=== PATIENT | female | born 1970 | race Caucasian/White ===

== ENCOUNTER 2022-11-19 11:36 | Observation (INO) ==
[2022-11-19 11:56] VITALS: BMI 24.9
--- NOTE | 2022-11-19 12:03 | DR.GENAD ---
HPI Time Seen Time Seen by Provider: 11/19/22 12:02 PCP Primary Care Physician: Elina Dye/Thomas Complaint/Symptoms Chief Complaint Doctors Comments: 52 y/o female presents with worsening infection of her left foot. Put on her 's shoes, they were outside, felt discomfort of her R 4th toe. Started as a small red bump, was a bit itchy. Festered up the next day, has steadily worsened. Saw medical provider yesterday, placed on sulfa antibiotic, norco. Too nauseous to take the medicine. + pain of the left 4th toe, radiates to the left foot. + worse with palpation, movement. Nothing makes it better. Denies fever, chills. Has been having nausea. No vomiting or diarrhea. No prior h/o abscesses. Chief Complaint:: Patient states she possibly has spider bite left 4th toe from and progressivly got worse Thu & Thursday. Saw [employer] yesterday and started on Bactrim DS but causes N&V and cant keep it down COVID-19 Coronavirus risk:travel/contact w/high risk person: No Has patient experienced Coronavirus symptoms: No Nurses notes reviewed Nurses Notes Review: Yes Source History Provided: Patient Mode of Arrival Mode of Arrival: Ambulatory Timing Onset of Chief Complaint: 11/13/22 PMH PMH Past Medical History: No Past Surgical History: No Family History History of Family Medical Conditions: Yes Family Medical History: Diabetes Mellitus, Cancer, Coronary Artery Disease, Heart Failure and Hypertension Social History Does patient currently use any type of tobacco product: No Have you used tobacco products in the last 12 months: No Type of Tobacco Use: None Does any household member use tobacco: No Alcohol Use: None Do you use any recreational Drugs:: No Lives With: Spouse Lives Where: Home Travel Risk Coronavirus risk:travel/contact w/high risk person: No Has patient experienced Coronavirus symptoms: No Infectious screening In the last 2 months have you had wt loss of >10#?: NO Have you had fever, night sweats or hemotysis?: No Have you traveled outside the country in the last 6 months?: No Isolation: Standard ROS Review of Systems Constitutional: No Symptoms Reported Eyes: No Symptoms Reported ENTM: No Symptoms Reported Respiratoy: No Symptoms Reported Cardiovascular: No Symptoms Reported Gastrointestinal/Abdominal: Nausea Genitourinary: No Symptoms Reported Neurological: No Symptoms Reported Musculoskeletal: See HPI Integumentary: See HPI All Other Systems: Reviewed and Negative PE Vital Signs Vitals: Temperature 97.5 F Pulse Rate 76 Respiratory Rate 20 Blood Pressure 134/57 O2 Sat by Pulse Oximetry 98 General General Appearance: Alert and In No Apparent Distress Eyes Eye exam: PERRL and EOMI ENT ENT Exam: Mucous Membranes Moist Neck Neck Exam: Normal Inspection Respiratory Respiratory Exam: Normal Lung Sounds Bilat; negative Accessory Muscle Use or Respiratory Distress Cardiovascular Cardiovascular Exam: Regular Rate, Normal Rhythm and Normal Heart Sounds Neurologic Neurological Exam: Alert, Oriented X3 and CN II-XII Intact; negative Motor Sensory Deficit Skin Skin Exam: Warm and Dry Other Exam Other Exam: L foot - + 4th toe with swelling, erythema, purulent material under skin. + surrounding erythema with tenderness. COURSE Treatment Treatment: 52 y/o female with worsening infection of her L 4th toe/foot over the past few days. Unable to take the sulfa antibiotic prescribed yesterday due to nausea. W/u initiated. 1340 - WBC slightly elevated , 12.8, 84% PMNs. Discussed with Dr Guzman, will admit, put on IV Zosyn/Vancomycin, and consult with Dr Denton, as toe may need drainage. ROR Labs Reviewed Laboratory Results Reviewed?: Yes Result Diagrams: 11/19/22 12:22 11/19/22 12:22 Laboratory: WBC 12.8 X10^3/uL (3.6-10.0) H 11/19/22 12:22 RBC 4.79 X10^6/uL (3.5-5.4) 11/19/22 12:22 Hgb 14.4 g/dL (12.0-16.0) 11/19/22 12:22 Hct 42.1 % (36.0-47.0) 11/19/22 12:22 MCV 87.8 fL (80.0-100.0) 11/19/22 12:22 MCH 30.0 pg (27.0-34.0) 11/19/22 12:22 MCHC 34.2 g/dL (33.0-35.0) 11/19/22 12:22 RDW 13.7 % (11.6-16.5) 11/19/22 12:22 Plt Count 225 X10^3/uL (150.0-450.0) 11/19/22 12:22 MPV 8.1 fL (7.4-11.0) 11/19/22 12:22 Neut % (Auto) 83.8 % (42.0-75.0) H 11/19/22 12:22 Lymph % (Auto) 8.9 % (21.0-51.0) L 11/19/22 12:22 [place] % (Auto) 6.7 % (0.0-13.0) 11/19/22 12:22 Eos % (Auto) 0.2 % (0.9-2.9) L 11/19/22 12:22 Baso % (Auto) 0.4 % (0.2-1.0) 11/19/22 12:22 Neut # (Auto) 10.8 x10^3/uL (2.2-4.8) H 11/19/22 12:22 Lymph # (Auto) 1.1 X10^3/uL (1.3-2.9) L 11/19/22 12:22 [place] # (Auto) 0.9 x10^3/uL (0.3-0.8) H 11/19/22 12:22 Eos # (Auto) 0.0 x10^3/uL (0.0-0.2) 11/19/22 12:22 Baso # (Auto) 0.0 X10^3/uL (0.0-0.1) 11/19/22 12:22 Absolute Nucleated RBC 0.0 /100WBC 11/19/22 12:22 Sodium 135 mmol/L (136-145) L 11/19/22 12:22 Corrected Sodium TNP 11/19/22 12:22 Potassium 4.5 mmol/L (3.5-5.1) 11/19/22 12:22 Chloride 99 mmol/L (98-107) 11/19/22 12:22 Carbon Dioxide 26.5 mmol/L (21-32) 11/19/22 12:22 BUN 14 mg/dL (7-18) 11/19/22 12:22 Creatinine 0.93 mg/dL (0.55-1.02) 11/19/22 12:22 Est GFR (MDRD) Af Amer > 60 (>60) 11/19/22 12:22 Est GFR (MDRD) Non-Af > 60 (>60) 11/19/22 12:22 Glucose 89 mg/dL (65-99) 11/19/22 12:22 Lactic Acid 0.7 mmol/L (0.4-2.0) 11/19/22 12:22 Calcium 8.7 mg/dL (8.5-10.1) 11/19/22 12:22 Corrected Calcium TNP 11/19/22 12:22 Total Bilirubin 0.90 mg/dL (0.2-1.0) 11/19/22 12:22 AST 75 Units/L (15-37) H 11/19/22 12:22 ALT 111 Units/L (12-78) H 11/19/22 12:22 Alkaline Phosphatase 176 Units/L (46-116) H 11/19/22 12:22 Total Protein 7.5 g/dL (6.4-8.2) 11/19/22 12:22 Albumin 3.7 g/dL (3.4-5.0) 11/19/22 12:22 Globulin 3.8 g/dL (2.5-4.5) 11/19/22 12:22 Albumin/Globulin Ratio 1.0 Ratio (1.1-2.1) L 11/19/22 12:22 Opioid Opioid Risk Tool Age (José Miguel box if 16-45): No History of Preadolescent Sexual Abuse: No Total: 0 Total Score Risk Category: Low Risk Copyright: Cesar PATTERSON predicting aberrant behaviors Discharge Plan Diagnosis Discharge Problem: Cellulitis of foot, left Discharge Plan Patient Disposition: 09 ADMITTED INPATIENT Condition: Stable
[2022-11-19] MEDS ORDERED: NS 1,000 ML IV 1,000 ML IV ONE (12:07)
[2022-11-19] MEDS ORDERED: NS 1,000 ML IV 1,000 ML ONE (12:10)
[2022-11-19] MEDS ORDERED: ZOFRAN INJ 4 MG VIAL ONE (12:35)
[2022-11-19] MEDS ORDERED: ZOFRAN INJ 4 MG VIAL IVP ONE (12:39)
[2022-11-19 12:40] LABS: BASOPHILS % (AUTO) 0.4 % (0.2-1.0); EOSINOPHILS % (AUTO) 0.2 % (0.9-2.9); HEMATOCRIT 42.1 % (36.0-47.0); HEMOGLOBIN 14.4 g/dL (12.0-16.0); LYMPHOCYTES # (AUTO) 1.1 X10^3/uL (1.3-2.9); LYMPHOCYTES % (AUTO) 8.9 % (21.0-51.0); MEAN CORPUSCULAR HGB CONC 34.2 g/dL (33.0-35.0); MEAN CORPUSCULAR VOLUME 87.8 fL (80.0-100.0); MEAN PLATELET VOLUME 8.1 fL (7.4-11.0); MONOCYTES # (AUTO) 0.9 x10^3/uL (0.3-0.8); MONOCYTES % (AUTO) 6.7 % (0.0-13.0); NEUTROPHILS # (AUTO) 10.8 x10^3/uL (2.2-4.8); NEUTROPHILS % (AUTO) 83.8 % (42.0-75.0); PLATELET COUNT 225 X10^3/uL (150.0-450.0); RED BLOOD COUNT 4.79 X10^6/uL (3.5-5.4); RED CELL DISTRIBUTION WIDTH 13.7 % (11.6-16.5); WHITE BLOOD COUNT 12.8 X10^3/uL (3.6-10.0)
[2022-11-19 12:58] LABS: ALANINE AMINOTRANSFERASE 111 Units/L (12-78); ALBUMIN 3.7 g/dL (3.4-5.0); ALKALINE PHOSPHATASE 176 Units/L (46-116); ASPARTATE AMINO TRANSFERASE 75 Units/L (15-37); BLOOD UREA NITROGEN 14 mg/dL (7-18); CALCIUM 8.7 mg/dL (8.5-10.1); CARBON DIOXIDE 26.5 mmol/L (21-32); CHLORIDE 99 mmol/L (98-107); CREATININE 0.93 mg/dL (0.55-1.02); GLUCOSE 89 mg/dL (65-99); POTASSIUM 4.5 mmol/L (3.5-5.1); SODIUM 135 mmol/L (136-145); TOTAL PROTEIN 7.5 g/dL (6.4-8.2); eGFR NON BLACK RACES > 60 (>60)
[2022-11-19 13:02] LABS: LACTIC ACID 0.7 mmol/L (0.4-2.0)
[2022-11-19] MEDS ORDERED: ZOSYN VIAL 3.375 GRAMS 3.375 G in NS 100 ML IV 100 ML IV ONE (13:23)
[2022-11-19] MEDS ORDERED: VANCOMYCIN IV *PREMIX 1 G/200 ML BAG 1 G/200 ML PIGGYBACK IV ONE ×2 (13:24→14:12)
[2022-11-19] MEDS ORDERED: ZOSYN VIAL 3.375 GRAMS IV ONE (13:31)
[2022-11-19] MEDS ORDERED: NS 100 ML IV 100 ML ONE (13:32)
[2022-11-19] MEDS ORDERED: VANCOMYCIN IV *PREMIX 1 G/200 ML BAG 1 G/200 ML PIGGYBACK IV SCH (14:58)
[2022-11-19] MEDS ORDERED: PHARMACY CONSULT - VANCOMYCIN XX SCH (15:00)
[2022-11-19] MEDS: ZOSYN VIAL 3.375 GRAMS 3.375 G in NS 100 ML IV 100 ML IV SCH ×2 (15:26→21:11)
[2022-11-19] MEDS ORDERED: TYLENOL 325 MG TAB PO PRN (15:50)
[2022-11-19] MEDS: ZOFRAN INJ 4 MG VIAL IVP PRN ×2 (16:02→22:47)
[2022-11-19] MEDS: VANCOMYCIN IV *PREMIX 1 G/200 ML BAG 1 G/200 ML PIGGYBACK IV SCH (21:11)
[2022-11-19] MEDS: MORPHINE SULFATE INJ 4 MG IVP PRN (22:47)
[2022-11-20] MEDS: VANCOMYCIN IV *PREMIX 1 G/200 ML BAG 1 G/200 ML PIGGYBACK IV SCH ×3 (05:00→21:00)
[2022-11-20] MEDS: ZOSYN VIAL 3.375 GRAMS 3.375 G in NS 100 ML IV 100 ML IV SCH ×3 (05:05→22:00)
[2022-11-20 06:06] LABS: ALANINE AMINOTRANSFERASE 141 Units/L (12-78); ALBUMIN 3.3 g/dL (3.4-5.0); ALKALINE PHOSPHATASE 179 Units/L (46-116); ASPARTATE AMINO TRANSFERASE 101 Units/L (15-37); BLOOD UREA NITROGEN 13 mg/dL (7-18); CARBON DIOXIDE 25.8 mmol/L (21-32); CHLORIDE 104 mmol/L (98-107); COR CA(FOR HYPOALB) 8.6 mg/dL (8.5-10.1); CREATININE 0.89 mg/dL (0.55-1.02); GLUCOSE 90 mg/dL (65-99); POTASSIUM 4.1 mmol/L (3.5-5.1); SODIUM 139 mmol/L (136-145); TOTAL PROTEIN 7.2 g/dL (6.4-8.2); eGFR NON BLACK RACES > 60 (>60)
[2022-11-20 06:35] LABS: BASOPHILS # (AUTO) 0.1 X10^3/uL (0.0-0.1); BASOPHILS % (AUTO) 0.6 % (0.2-1.0); EOSINOPHILS # (AUTO) 0.1 x10^3/uL (0.0-0.2); EOSINOPHILS % (AUTO) 1.3 % (0.9-2.9); HEMATOCRIT 39.4 % (36.0-47.0); HEMOGLOBIN 13.4 g/dL (12.0-16.0); LYMPHOCYTES # (AUTO) 1.3 X10^3/uL (1.3-2.9); LYMPHOCYTES % (AUTO) 12.5 % (21.0-51.0); MEAN CORPUSCULAR HGB CONC 33.9 g/dL (33.0-35.0); MEAN CORPUSCULAR VOLUME 88.5 fL (80.0-100.0); MEAN PLATELET VOLUME 8.6 fL (7.4-11.0); MONOCYTES % (AUTO) 9.9 % (0.0-13.0); NEUTROPHILS % (AUTO) 75.7 % (42.0-75.0); PLATELET COUNT 139 X10^3/uL (150.0-450.0); RED BLOOD COUNT 4.45 X10^6/uL (3.5-5.4); RED CELL DISTRIBUTION WIDTH 13.8 % (11.6-16.5); WHITE BLOOD COUNT 10.5 X10^3/uL (3.6-10.0)
[2022-11-20] MEDS: MORPHINE SULFATE INJ 4 MG IVP PRN (09:00)
[2022-11-20] MEDS: ZOFRAN INJ 4 MG VIAL IVP PRN (09:08)
[2022-11-20] MEDS ORDERED: NORCO 10/325 TAB PO PRN (10:30)
[2022-11-20] MEDS ORDERED: LR 1,000 ML IV 1,000 ML IV ONE (13:03)
[2022-11-20] MEDS ORDERED: ANCEF VIAL 1 GRAM ONE (13:03)
[2022-11-20] MEDS ORDERED: NS 100 ML IV 100 ML ONE (13:04)
[2022-11-20] MEDS ORDERED: PEPCID 20 MG VIAL ONE (13:07)
[2022-11-20] MEDS ORDERED: VERSED ONE (13:07)
[2022-11-20] MEDS ORDERED: PRECEDEX INJ VIAL IVP ONE (13:07)
[2022-11-20] MEDS ORDERED: ZOFRAN INJ 4 MG VIAL ONE (13:07)
[2022-11-20] MEDS ORDERED: DECADRON INJ ONE (13:07)
[2022-11-20] MEDS ORDERED: DIPRIVAN VIAL 20 ML ONE (13:07)
[2022-11-20] MEDS ORDERED: FENTANYL VIAL INJ 100 mcg ONE (13:08)
[2022-11-20] MEDS ORDERED: BETADINE SOLN ONE (13:20)
[2022-11-20] MEDS ORDERED: XYLOCAINE 1 % (PLAIN) ONE (13:20)
[2022-11-20] MEDS ORDERED: PHENERGAN INJ 25 MG IM ONE (13:26)
[2022-11-20] MEDS ORDERED: PHARMACY COMMENT IV ONE (13:30)
[2022-11-20 14:49] LABS: CREATININE 0.83 mg/dL (0.55-1.02)
--- NOTE | 2022-11-20 20:48 | US ---
LIVERHISTORY: ELEVATED TRANSAMINASESComparison: NoneTechnique: Multiple ferrer scale and color flow Doppler images of the abdomen were obtained.Findings:Overall study is limited by overlying bowel gas. The liver is normal in echotexture and size. No focal mass. No intrahepatic bile duct dilatation. Gallbladder absent. The common bile duct measures 4 mm.IMPRESSION:1.Unremarkable right upper quadrant ultrasound.Electronically signed by: FIFI SPEARS (November 20, 2022 20:46:58)
[2022-11-21] MEDS: VANCOMYCIN IV *PREMIX 1 G/200 ML BAG 1 G/200 ML PIGGYBACK IV SCH ×3 (05:55→22:13)
[2022-11-21] MEDS: ZOSYN VIAL 3.375 GRAMS 3.375 G in NS 100 ML IV 100 ML IV SCH ×3 (06:02→21:03)
[2022-11-21 06:12] LABS: BASOPHILS # (AUTO) 0.1 X10^3/uL (0.0-0.1); BASOPHILS % (AUTO) 0.9 % (0.2-1.0); EOSINOPHILS # (AUTO) 0.1 x10^3/uL (0.0-0.2); EOSINOPHILS % (AUTO) 0.5 % (0.9-2.9); HEMATOCRIT 39.9 % (36.0-47.0); HEMOGLOBIN 13.7 g/dL (12.0-16.0); LYMPHOCYTES # (AUTO) 1.3 X10^3/uL (1.3-2.9); LYMPHOCYTES % (AUTO) 10.1 % (21.0-51.0); MEAN CORPUSCULAR HGB CONC 34.2 g/dL (33.0-35.0); MEAN CORPUSCULAR VOLUME 87.8 fL (80.0-100.0); MEAN PLATELET VOLUME 9.1 fL (7.4-11.0); MONOCYTES # (AUTO) 1.1 x10^3/uL (0.3-0.8); MONOCYTES % (AUTO) 8.7 % (0.0-13.0); NEUTROPHILS % (AUTO) 79.8 % (42.0-75.0); PLATELET COUNT 189 X10^3/uL (150.0-450.0); RED BLOOD COUNT 4.54 X10^6/uL (3.5-5.4); RED CELL DISTRIBUTION WIDTH 13.6 % (11.6-16.5); WHITE BLOOD COUNT 12.6 X10^3/uL (3.6-10.0)
[2022-11-21 06:14] LABS: ALANINE AMINOTRANSFERASE 116 Units/L (12-78); ALKALINE PHOSPHATASE 204 Units/L (46-116); ASPARTATE AMINO TRANSFERASE 49 Units/L (15-37); BLOOD UREA NITROGEN 15 mg/dL (7-18); CALCIUM 7.9 mg/dL (8.5-10.1); CARBON DIOXIDE 23.8 mmol/L (21-32); CHLORIDE 105 mmol/L (98-107); COR CA(FOR HYPOALB) 8.7 mg/dL (8.5-10.1); COR NA(FOR HYPERGLY) 138 mmol/L (136-145); CREATININE 0.85 mg/dL (0.55-1.02); GLUCOSE 148 mg/dL (65-99); POTASSIUM 4.1 mmol/L (3.5-5.1); SODIUM 137 mmol/L (136-145); TOTAL PROTEIN 6.7 g/dL (6.4-8.2); eGFR NON BLACK RACES > 60 (>60)
[2022-11-22] MEDS: VANCOMYCIN IV *PREMIX 1 G/200 ML BAG 1 G/200 ML PIGGYBACK IV SCH (05:00)
[2022-11-22 05:31] LABS: BASOPHILS # (AUTO) 0.1 X10^3/uL (0.0-0.1); EOSINOPHILS # (AUTO) 0.2 x10^3/uL (0.0-0.2); EOSINOPHILS % (AUTO) 3.2 % (0.9-2.9); HEMATOCRIT 37.6 % (36.0-47.0); LYMPHOCYTES # (AUTO) 1.9 X10^3/uL (1.3-2.9); LYMPHOCYTES % (AUTO) 24.3 % (21.0-51.0); MEAN CORPUSCULAR HEMOGLOBIN 30.4 pg (27.0-34.0); MEAN CORPUSCULAR HGB CONC 34.7 g/dL (33.0-35.0); MEAN CORPUSCULAR VOLUME 87.8 fL (80.0-100.0); MEAN PLATELET VOLUME 8.2 fL (7.4-11.0); MONOCYTES # (AUTO) 0.7 x10^3/uL (0.3-0.8); MONOCYTES % (AUTO) 9.3 % (0.0-13.0); NEUTROPHILS # (AUTO) 4.8 x10^3/uL (2.2-4.8); NEUTROPHILS % (AUTO) 62.2 % (42.0-75.0); PLATELET COUNT 215 X10^3/uL (150.0-450.0); RED BLOOD COUNT 4.28 X10^6/uL (3.5-5.4); RED CELL DISTRIBUTION WIDTH 13.6 % (11.6-16.5); WHITE BLOOD COUNT 7.7 X10^3/uL (3.6-10.0)
[2022-11-22 05:47] LABS: ALANINE AMINOTRANSFERASE 82 Units/L (12-78); ALBUMIN 2.8 g/dL (3.4-5.0); ALKALINE PHOSPHATASE 157 Units/L (46-116); ASPARTATE AMINO TRANSFERASE 29 Units/L (15-37); BLOOD UREA NITROGEN 13 mg/dL (7-18); CALCIUM 7.9 mg/dL (8.5-10.1); CHLORIDE 105 mmol/L (98-107); COR CA(FOR HYPOALB) 8.9 mg/dL (8.5-10.1); CREATININE 0.68 mg/dL (0.55-1.02); GLUCOSE 100 mg/dL (65-99); POTASSIUM 4.4 mmol/L (3.5-5.1); SODIUM 138 mmol/L (136-145); TOTAL PROTEIN 6.4 g/dL (6.4-8.2); eGFR NON BLACK RACES > 60 (>60)
[2022-11-22] MEDS: ZOSYN VIAL 3.375 GRAMS 3.375 G in NS 100 ML IV 100 ML IV SCH (05:58)
[2022-11-22 05:59] LABS: HEPATITIS B SURFACE ANTIGEN Negative (Negative)
[2022-11-22 08:00] VITALS: BP 117/66; PULSE 62; TEMP 97.8; O2SAT 100
[2022-11-22] MEDS ORDERED: BACTROBAN TOPICAL OINT TOP ONE (10:15)
== END 2022-11-22 10:45 | disposition home or self-care (01) ==
LOC: ER 11:36 → MED/SURG 11:36
PROVIDERS: ADMIT Obstetrics & Gynecology Obstetrics; ATTEND Obstetrics & Gynecology Obstetrics